=== PATIENT | male | born 1945 | race Caucasian/White ===

== ENCOUNTER 2024-01-09 13:18 | Emergency (ER) | payer OTHER ==
[~2024-01-09 13:18] MED LIST: BACL10TA PO
[2024-01-09 13:44] VITALS: PULSE 105; RESP 15; O2SAT 96
[2024-01-09] MEDS: MAGNESIUM SULFATE 1GM/100ML 100 ML IV SCH (13:45)
[2024-01-09 14:10] LABS: Basophils # (auto) 0 10 ^3/uL (0-0.2); Basophils % (auto) 0.1 % (0.0-2.0); Eosinophils # (auto) 0 10 ^3/uL (0-0.8); Hematocrit 44.8 % (41.0-53.0); Hemoglobin 15.3 g/dL (13.5-17.5); Lymphocytes # (auto) 1.1 10 ^3/uL (0.4-5.4); Lymphocytes % (auto) 5.2 % (10.0-50.0); Mean Corpuscular Hemoglobin 30.9 pg (28.0-32.0); Mean Corpuscular Hgb Conc. 34.3 g/dL (32.0-36.0); Mean Corpuscular Volume 90.2 fL (80.0-100.0); Monocytes % (auto) 8.9 % (0.0-12.0); Neutrophils % (auto) 85.8 % (37.0-80.0); Red Blood Cells 4.96 10^6/uL (4.5-5.90); Red Cell Distribution Width 13.9 % (11.8-14.3); White Blood Cell 22.2 10^3/uL (4.4-10.8)
[2024-01-09 14:14] LABS: Alanine Aminotransferase 19 U/L (7-40); Alkaline Phosphatase 62 U/L (46-116); Anion Gap 8 (5-15); Aspartate Aminotransferase 9 U/L (13-40); BUN/Creatinine Ratio 13.5 (10.0-20.0); Blood Urea Nitrogen 12 mg/dL (9-23); Calcium 10.1 mg/dL (8.5-10.1); Carbon Dioxide 25 mmol/L (20-30); Chloride 99 mmol/L (98-107); Glucose 261 mg/dL (74-106); Potassium 3.4 mmol/L (3.5-5.1); Sodium 132 mmol/L (136-145)
[2024-01-09 14:15] LABS: Albumin 4.4 g/dL (3.2-4.8); Bilirubin, Total 1.4 mg/dL (0.2-1.0); INR 1.15 (0.9-1.15); Partial Thromboplastin Time 31.9 SEC (24.5-34.5); Prothrombin Time 12.1 sec (9.3-11.8); Total Protein 6.5 g/dL (5.7-8.2)
[2024-01-09] MEDS: AZITHROMYCIN 500MG/ 250ML 250 ML IV ONE (16:00)
[2024-01-09 16:19] LABS: Urine Bacteria MANY /hpf (None Seen); Urine Blood 2+ /uL (Negative); Urine Budding Yeast FEW /hpf (None Seen); Urine Clarity Turbid (Clear); Urine Color Light-Orange (Yellow); Urine Mucus FEW (None Seen); Urine Protein, UAD 2+ (Negative); Urine Specific Gravity 1.023 (1.001-1.035); Urine Urobilinogen Normal (Negative); Urine WBC 73 /hpf (0 - 3); Urine WBC Clumps PRESENT /hpf (None Seen); Urine pH 6.5 (5.0-9.0)
[2024-01-09] MEDS: ENOXAPARIN SOD 60 MG/0.6 ML SYRINGE SC ONE (16:36)
[2024-01-09] MEDS: cefTRIAXone 1GM/50ML D5W 50 ML IV ONE (16:36)
[2024-01-09] MEDS: SODIUM CHLORIDE 0.9% 500 ML IV ONE (18:17)
[2024-01-09] MEDS: ACETAMINOPHEN 325 MG TAB PO ONE (18:18)
[2024-01-09 20:00] VITALS: PULSE 90; RESP 13; O2SAT 96
[2024-01-09 20:22] VITALS: BP 113/46; PULSE 91; RESP 12; TEMP 99.4; O2SAT 96
== END 2024-01-09 20:22 | disposition short-term general hospital (02) ==
LOC: ER 13:18 → EDBD 13:18 → ER 20:22
DX: I24.9 Acute ischemic heart disease, unspecified (principal); I49.3 Ventricular premature depolarization; J18.9 Pneumonia, unspecified organism; J90 Pleural effusion, not elsewhere classified; D72.828 Other elevated white blood cell count; R79.89 Other specified abnormal findings of blood chemistry; R06.02 Shortness of breath; I10 Essential (primary) hypertension; E11.9 Type 2 diabetes mellitus without complications; Z86.73 Personal history of transient ischemic attack (TIA), and cerebral infarction without residual deficits
CPT/HCPCS: 36415; 71045; 80053; 81001; 83605; 83880; 84484; 85025; 85610; 85730; 87040; 93005; 96365; 96366; 96367; 96368; 96372; 99285; J0456; J0696; J1650; J3475